=== PATIENT | male | born 1960 | race Caucasian/White ===

== ENCOUNTER 2022-07-26 19:59 | Outpatient (CLI) | payer BC ==
--- NOTE | 2022-07-26 22:11 | Ultrasound Report ---
PROCEDURE: Testicle INDICATIONS: TESTICULAR PAIN, HX OF TESTICULAR CA TECHNIQUE: Real-time scanning was performed of the scrotum and testicles, with image documentation. Color and p ulse Doppler interrogation was performed of both testicles. COMPARISON: None. FINDINGS: Right: Testicle measures 4.1 x 2.2 x 3.3 cm and appears homogenous in echotexture. The epididymis d emonstrates small echogenic mobile foci. There is a moderate-sized hydrocele. No varicoceles. [place] ing scrotal skin is normal in thickness. Left: Surgically absent. Doppler: Color and pulse Doppler demonstrate patent arterial and venous flow within the right testic le. There is suggestion of increased vascularity on color Doppler interrogation. There is also sugges tion of increased vascularity within the epididymis. IMPRESSION: 1. Suspected increased vascularity within the right testicle and epididymis with a moderate-sized hyd rocele suggestive of epididymoorchitis. 2. Small echogenic mobile foci within the right epididymis suggestive of a filarial dance sign which has been reported with epididymal obstruction. Reviewed by: Zay Tran MD on 07/26/2022 10:10 PM PDT Approved by: Zay Tran MD on 07/26/2022 10:10 PM PDT Station ID: [id number]
== END 2022-07-26 20:00 | disposition home or self-care (01) ==
LOC: DI 19:59
PROVIDERS: ATTEND Internal Medicine
DX: N43.2 Other hydrocele (principal); R93.89 Abnormal findings on diagnostic imaging of other specified body structures

== ENCOUNTER 2024-04-04 08:08 | Emergency (ER) | payer BC ==
--- NOTE | 2024-04-04 08:41 | ED Physician Documentation ---
History of Present Illness - Stated complaint Stated Complaint: SOA,WHEEZING - Chief complaint Chief Complaint: Resp - History obtained from History obtained from: Patient, Family - Additonal information Additional information: The patient comes to the emergency department with his for chief complaint of difficulty breathing and right-sided chest pain. The patient states that he had an orthopedic surgery 2 days ago involving his left lower extremity and that he was told at the surgery center that he had aspirated. His states that they were told that he had vomited about 100 cc of clear vomitus with some particulate. He had been intubated for the procedure. He states that his anesthesia was done by an [employer] who ordered a breathing treatment at the time, Which did seem to help. They had told him at the time that he should "go get seen somewhere", but it was late in the day and the patient decided to go home. It is not clear why antibiotics were not prescribed at the time by the [employer], Though the patient states that they were told that "we used to do x-ray and prescribe antibiotics but would not really do that anymore". The patient states that yesterday he seemed to be doing okay and had felt better after the breathing treatment the day before; however, last night he began to notice that he was becoming more short of breath and had an increasingly productive cough. He also felt as though he was wheezing. He states that it worsened overnight and this morning, he finally decided to come in. He denies fevers. He does not have any underlying lung issues. He states that he is otherwise fairly healthy. No pain in his calf or quad; only in his left ankle. He states he is nonweightbearing on the left lower extremity and has been getting around using a knee scooter. He states he has been just generally tired since the surgery. PD PAST MEDICAL HISTORY - Present Medications Home Medications: Ambulatory Orders Medication Instructions Recorded Confirmed Acetaminophen [Tylenol] 1,000 mg PO Q8HR 04/04/24 04/04/24 Albuterol Sulf [Ventolin Hfa 1 - 2 puffs INH Q4HR PRN #1 each 04/04/24 Inhaler] Azithromycin [Zithromax] 0 mg PO DAILY #6 tablet 04/04/24 Cimetidine 200 mg PO DAILY 04/04/24 04/04/24 Ibuprofen [Motrin] 600 mg PO Q6H PRN 04/04/24 04/04/24 Losartan [Cozaar] 100 mg PO DAILY 04/04/24 04/04/24 Metoprolol Succinate [Toprol Xl] 50 mg PO DAILY 04/04/24 04/04/24 predniSONE [Deltasone] 10 mg PO [id number] #42 tab 04/04/24 traMADol [Ultram] 50 mg PO Q4-6H 04/04/24 04/04/24 - Allergies Allergies/Adverse Reactions: Allergies Allergy/AdvReac Type Severity Reaction Status Date / Time Opioids - Morphine Analogues Allergy Anaphylaxis Verified 04/04/24 08:36 shellfish derived Allergy Anaphylaxis Verified 04/04/24 08:36 - Social History Does the pt smoke?: No Smoking Status: Never smoker Does the pt drink ETOH?: Yes Does the pt have substance abuse?: No - Immunizations Immunizations are current?: Yes - POLST Patient has POLST: No PD ED PE NORMAL - Vitals Vital signs reviewed: Yes - General General: Alert and oriented X 3, No acute distress, Well developed/nourished, Other (Some audible wheezing and wet breath sounds.) - HEENT HEENT: Atraumatic, EOMI, Moist mucous membranes - Neck Neck: Supple, no meningeal sign - Cardiac Cardiac: RRR, No murmur - Respiratory Respiratory: No respiratory distress, Other (Rhonchi throughout lung pinto bila terally. Slightly prolonged expiratory phase. Mild Rales in right upper lung field.) - Abdomen Abdomen: Soft, Non tender, Non distended - Derm Derm: Normal color, Warm and dry, No rash - Extremities Extremities: No deformity, No tenderness to palpate, No calf tenderness / cord, Other (Left lower extremity in boot. The portion of the calf superior to boot is nontender and quad is nontender) - Neuro Neuro: Other (Grossly intact) - Psych Psych: Normal mood, Normal affect Results - Vitals Vitals: Vital Signs - 24 hr 04/04/24 04/04/24 04/04/24 08:23 08:53 09:28 Temperature 36.6 C Heart Rate 71 80 61 Respiratory 20 18 20 Rate Blood Pressure 155/102 H 144/92 H O2 Saturation 97 99 04/04/24 10:50 Temperature 36.4 C L Heart Rate 62 Respiratory 16 Rate Blood Pressure 134/86 H O2 Saturation 92 Oxygen O2 Source Room air PD Medical Decision Making - ED course Complexity details: reviewed results, re-evaluated patient, considered differential, d/w patient, d/w family ED course: The patient was treated with a DuoNeb and Decadron and worked up with a chest x- ray. The patient's chest x-ray was actually negative for aspiration pneumonia. The patient was feeling somewhat better on reevaluation was quite a bit clear. I did ask the patient if he would like another breathing treatment and he st ated he felt well enough to go home. I do feel that he should be on an inhaler and a course of steroids at home and also, I discussed with him that he most likely has at least an aspiration bronchitis, given his worsening productive cough since the intubation and aspiration. As such, I will place him on antibiotics for this. We have discussed symptomatic management at home as well as usual indications for follow-up and return. Departure - Departure Disposition: Home, Self Care Clinical Impression: Bronchitis after surgery, Mild intermittent reactive airway disease Condition: Stable Instructions: ED Reactive Airway Disease, ED Upper Resp Infec Abx Tx Prescriptions: Albuterol Sulf [Ventolin Hfa Inhaler] 1 - 2 puffs INH Q4HR PRN #1 each PRN Reason: Shortness Of Air/Wheezing predniSONE [Deltasone] 10 mg PO [id number] #42 tab Azithromycin [Zithromax] 0 mg PO DAILY #6 tablet Comments: Your x-ray actually looks fairly good despite the sounds in your lung exam. Most likely, a combination of the aspiration and the intubation is caused some irritation of your airways, and causing them to react and tighten up. You may also have developed some bronchitis from the aspiration. You have been treated with a breathing treatment and steroids here in the emergency department today. Prescription for an inhaler and steroids as well as a course of antibiotics for bronchitis have been electronically transmitted to the [facility] pharmacy in [place]. Please pick these up today and begin taking them. Please follow-up with your primary doctor if you are not feeling better in the next week. Forms: PCP List Discharge Date/Time: 04/04/24 10:55
[2024-04-04] MEDS: DEXAMETHASONE 10 MG/ML VIAL IM STA (08:43)
[2024-04-04] MEDS: IPRATROPIUM/ALBUTEROL 3 ML NEB INH STA (08:51)
--- NOTE | 2024-04-04 09:01 | XRAY Report ---
PROCEDURE: Chest 1V INDICATIONS: aspiration, R CP, SOB, cough TECHNIQUE: One view of the chest was acquired. COMPARISON: None. FINDINGS: Surgical changes and devices: None. Lungs and pleura: No pleural effusions or pneumothorax. Platelike opacity at the left lung base. Mediastinum: Mediastinal contours appear normal. Heart size is normal. Bones and chest wall: No suspicious bony lesions. Overlying soft tissues appear unremarkable. IMPRESSION: Platelike opacity at the left lung base. Suspect atelectasis over aspiration or pneumonia. Reviewed by: Joss Schulte MD on 04/04/2024 9:00 AM PDT Approved by: Joss Schulte MD on 04/04/2024 9:00 AM PDT Station ID: [id number]
[2024-04-04 11:07] VITALS: BP 134/86; O2SAT 92
== END 2024-04-04 10:55 | disposition home or self-care (01) ==
LOC: ED 08:08
DX: J69.0 Pneumonitis due to inhalation of food and vomit (principal); J45.20 Mild intermittent asthma, uncomplicated
CPT/HCPCS: 94640; 99283